=== PATIENT | female | born 1955 | race Caucasian/White ===

== ENCOUNTER 2020-10-28 13:47 | Outpatient (REF) | payer MEDICARE, OTHER, SELFPAY ==
[2020-10-28 14:44] LABS: Baso%MD 1.2 %; Eos%MD 1.9 %; Hematocrit 36.7 % (37-47); Hemoglobin 12.5 g/dl (12.0-16.0); IG%MD 0.2 %; Lymph%MD 23.7 %; Mean Corpuscular HGB Conc 34.1 g/dl (31.0-35.0); Mean Corpuscular Hemoglobin 33.9 pg (27.0-33.0); Mean Corpuscular Volume 99.5 fL (80-98); Mean Platelet Volume 9.8 fL (9.4-12.3); Mono%MD 11.6 %; Neut%MD 61.4 %; Platelet Count 253 X10*3/uL (160-400); Red Blood Count 3.69 X10*6/uL (4.20-5.50); White Blood Count 4.2 X10*3/uL (4.8-10.8)
[2020-10-28 15:03] LABS: Alanine Aminotransferase 16 U/L (0-31); Albumin Level 4.8 g/dL (3.5-5.0); Alkaline Phosphatase 33 U/L (39-117); Anion Gap 15 (12-20); Aspartate Amino Transferase 17 U/L (5-31); Bilirubin Total 0.6 mg/dL (0.0-1.0); Blood Urea Nitrogen 14 mg/dL (9-16); Calcium 9.6 mg/dL (8.4-10.2); Carbon Dioxide 26 mmol/L (22-29); Chloride 99 mmol/L (96-108); Estimated Glomerular Filt Rate > 60; Glucose Random 99 mg/dL (60-115); Potassium 5.3 mmol/l (3.3-5.1); Sodium 135 mmol/L (135-145); Total Protein 7.3 g/dL (6.5-8.0)
[2020-10-28 15:26] LABS: Band Neutrophils Percent 0 % (3-5); Basophils Abs Manual 0.1 X10*3/uL (0.0-0.3); Basophils Percent Manual 2 % (0-1); Lymphocytes Absolute Manual 0.9 X10*3/uL (0.6-4.8); Lymphocytes Percent Manual 22 % (20-40); Monocytes Absolute Manual 0.5 X10*3/uL (0.0-1.2); Monocytes Percent Manual 13 % (2-11); Neutrophils Absolute Manual 2.6 X10*3/uL (2.2-7.9); Neutrophils Percent Manual 63 % (45-73)
[2020-10-28 15:27] LABS: Microcytosis 1+; Platelet Estimate NORMAL (NORMAL); RBC Morphology NOTED
[2020-10-28 15:28] LABS: Platelet Morphology Comment NORM
[2020-10-28 15:29] LABS: Burr Cells 1+; Schistocytes 1+
== END 2020-10-28 13:48 | disposition home or self-care (01) ==
LOC: HO.LAB 13:47
PROVIDERS: PCP Internal Medicine; Visit Provider Internal Medicine Medical Oncology
DX: D72.819 Decreased white blood cell count, unspecified (principal)
CPT/HCPCS: 36415; 80053; 85007; 85027

== ENCOUNTER → 2021-01-27 13:14 | Outpatient (BNVA) | payer MEDICARE, OTHER, SELFPAY | PROVIDERS: Visit Provider Urology | DX: N30.10 Interstitial cystitis (chronic) without hematuria (principal) | CPT/HCPCS: 99212 ==

== ENCOUNTER 2021-04-21 13:30 | Outpatient (REF) | payer MEDICARE, OTHER, SELFPAY ==
[2021-04-21 15:29] LABS: TSH reflex Free T4 0.78 uIU/mL (0.32-4.0)
[2021-04-22 16:52] LABS: Immunoglobulin A 120 mg/dL (70-320)
[2021-04-22 22:57] LABS: Transglutaminase Ab IgG 4 U/mL; Transglutaminase IgA 1 U/mL
[2021-04-23 00:12] LABS: Gliadin Deamidated IgA Ab 3 Units; Gliadin Deamidated IgG Ab 2 Units
[2021-04-24 12:22] LABS: Endomysial IgA Antibody Negative (Negative)
== END 2021-04-21 13:31 | disposition home or self-care (01) ==
LOC: HO.LAB 13:30
PROVIDERS: PCP Internal Medicine; Visit Provider Internal Medicine
DX: K58.0 Irritable bowel syndrome with diarrhea (principal)
CPT/HCPCS: 36415; 82784; 83516; 84443; 86255; 86256

== ENCOUNTER 2021-06-10 10:32 | Outpatient (REF) | payer MEDICARE, OTHER, SELFPAY ==
[2021-06-10 13:27] LABS: MANUAL DIFF FLAG NO
[2021-06-10 13:34] LABS: Basophils Percent Auto 1.2 % (0-2); Eosinophils Absolute Auto 0.1 X10*3/uL (0.0-0.4); Eosinophils Percent Auto 2.6 % (0-4); Hematocrit 37.5 % (37-47); Hemoglobin 12.7 g/dl (12.0-16.0); Imm Gran Abs Auto 0.03 X10*3/uL (0.00-0.03); Imm Gran Pct Auto 0.9 % (0.0-0.4); Lymphocytes Percent Auto 28.4 % (20-40); Mean Corpuscular HGB Conc 33.9 g/dl (31.0-35.0); Mean Corpuscular Hemoglobin 33.5 pg (27.0-33.0); Mean Corpuscular Volume 98.9 fL (80-98); Mean Platelet Volume 9.8 fL (9.4-12.3); Monocytes Absolute Auto 0.5 X10*3/uL (0.1-1.2); Neutrophils Absolute Auto 1.8 X10*3/uL (2.0-8.3); Neutrophils Percent Auto 52.9 % (45-73); Platelet Count 296 X10*3/uL (160-400); Red Blood Count 3.79 X10*6/uL (4.20-5.50); Red Cell Distribution Width 12.7 % (11.0-16.0); White Blood Count 3.4 X10*3/uL (4.8-10.8)
[2021-06-10 15:09] LABS: Alanine Aminotransferase 18 U/L (0-31); Albumin Level 4.7 g/dL (3.5-5.0); Alkaline Phosphatase 34 U/L (39-117); Anion Gap 15 (12-20); Aspartate Amino Transferase 17 U/L (5-31); Bilirubin Total 0.6 mg/dL (0.0-1.0); Blood Urea Nitrogen 13 mg/dL (9-16); Carbon Dioxide 27 mmol/L (22-29); Chloride 97 mmol/L (96-108); Cholesterol 250 mg/dL; Estimated Glomerular Filt Rate > 60; Glucose Fasting 100 mg/dL (60-99); HDL Cholesterol 97 mg/dL; LDL Cholesterol Calculated 140 mg/dl; Potassium 4.7 mmol/L (3.3-5.1); Sodium 134 mmol/L (135-145); Total Protein 7.3 g/dL (6.5-8.0); Triglycerides 65 mg/dL
== END 2021-06-10 10:33 | disposition home or self-care (01) ==
LOC: HO.10HDL 10:32
PROVIDERS: Visit Provider Physician Assistant
DX: Z00.00 Encounter for general adult medical examination without abnormal findings (principal)
CPT/HCPCS: 36415; 80053; 80061; 85025

== ENCOUNTER → 2021-08-18 10:52 | Outpatient (BNVA) | payer MEDICARE, OTHER, SELFPAY | DX: N30.10 Interstitial cystitis (chronic) without hematuria (principal) | CPT/HCPCS: 99212 ==

== ENCOUNTER 2021-10-28 10:59 | Outpatient (REF) | payer MEDICARE, OTHER, SELFPAY ==
[2021-10-28 14:00] LABS: MANUAL DIFF FLAG NO
[2021-10-28 14:04] LABS: Basophils Percent Auto 0.9 % (0-2); Eosinophils Absolute Auto 0.1 X10*3/uL (0.0-0.4); Eosinophils Percent Auto 2.6 % (0-4); Hematocrit 36.1 % (37.0-47.0); Hemoglobin 12.4 g/dl (12.0-16.0); Imm Gran Abs Auto 0.02 X10*3/uL (0.00-0.03); Imm Gran Pct Auto 0.6 % (0.0-0.4); Lymphocytes Absolute Auto 0.9 X10*3/uL (1.2-4.9); Lymphocytes Percent Auto 26.1 % (20-40); Mean Corpuscular HGB Conc 34.3 g/dl (31.0-35.0); Mean Corpuscular Hemoglobin 33.7 pg (27.0-33.0); Mean Corpuscular Volume 98.1 fL (80.0-98.0); Monocytes Absolute Auto 0.5 X10*3/uL (0.1-1.2); Monocytes Percent Auto 14.4 % (2-11); Neutrophils Absolute Auto 1.9 x10*3/uL (2.0-8.3); Neutrophils Percent Auto 55.4 % (45-73); Platelet Count 298 X10*3/uL (160-400); Red Blood Count 3.68 X10*6/uL (4.20-5.50); Red Cell Distribution Width 12.9 % (11.0-16.0); White Blood Count 3.4 X10*3/uL (4.8-10.8)
[2021-10-28 14:25] LABS: Alanine Aminotransferase 18 U/L (0-31); Albumin Level 4.5 g/dL (3.5-5.0); Alkaline Phosphatase 33 U/L (39-117); Anion Gap 13 (12-20); Aspartate Amino Transferase 18 U/L (5-31); Bilirubin Total 0.5 mg/dL (0.0-1.0); Blood Urea Nitrogen 18 mg/dL (9-16); Calcium 9.9 mg/dL (8.4-10.2); Carbon Dioxide 27 mmol/L (22-29); Chloride 100 mmol/L (96-108); Estimated Glomerular Filt Rate > 60; Glucose Random 99 mg/dL (60-115); Potassium 4.6 mmol/L (3.3-5.1); Sodium 135 mmol/L (135-145); Total Protein 7.1 g/dL (6.5-8.0)
== END 2021-10-28 11:00 | disposition home or self-care (01) ==
LOC: HO.10HDL 10:59
PROVIDERS: Visit Provider Internal Medicine Medical Oncology
DX: D72.819 Decreased white blood cell count, unspecified (principal)
CPT/HCPCS: 36415; 80053; 85025

== ENCOUNTER → 2022-04-28 11:25 | Outpatient (BNVA) | payer MEDICARE, OTHER, SELFPAY | DX: N30.10 Interstitial cystitis (chronic) without hematuria (principal); Z79.899 Other long term (current) drug therapy | CPT/HCPCS: Q3014 ==

== ENCOUNTER 2022-10-28 10:19 | Outpatient (REF) | payer MEDICARE, OTHER, SELFPAY ==
[2022-10-28 13:45] LABS: MANUAL DIFF FLAG NO
[2022-10-28 13:53] LABS: Basophils Percent Auto 1.1 % (0-2); Eosinophils Absolute Auto 0.1 X10*3/uL (0.0-0.4); Eosinophils Percent Auto 1.7 % (0-4); Hematocrit 36.9 % (37.0-47.0); Hemoglobin 12.4 g/dl (12.0-16.0); Imm Gran Abs Auto 0.01 X10*3/uL (0.00-0.03); Imm Gran Pct Auto 0.3 % (0.0-0.4); Mean Corpuscular HGB Conc 33.6 g/dl (31.0-35.0); Mean Corpuscular Hemoglobin 33.2 pg (27.0-33.0); Mean Corpuscular Volume 98.7 fL (80.0-98.0); Mean Platelet Volume 9.9 fL (9.4-12.3); Monocytes Absolute Auto 0.5 X10*3/uL (0.1-1.2); Monocytes Percent Auto 14.2 % (2-11); Neutrophils Percent Auto 55.7 % (45-73); Platelet Count 268 X10*3/uL (160-400); Red Blood Count 3.74 X10*6/uL (4.20-5.50); Red Cell Distribution Width 12.9 % (11.0-16.0); White Blood Count 3.6 X10*3/uL (4.8-10.8)
[2022-10-28 14:13] LABS: Alanine Aminotransferase 16 U/L (0-31); Albumin Level 4.9 g/dL (3.5-5.0); Alkaline Phosphatase 33 U/L (39-117); Anion Gap 13 (12-20); Aspartate Amino Transferase 19 U/L (5-31); Bilirubin Total 0.4 mg/dL (0.0-1.0); Blood Urea Nitrogen 17 mg/dL (9-16); Calcium 10.1 mg/dL (8.4-10.2); Carbon Dioxide 26 mmol/L (22-29); Chloride 99 mmol/L (96-108); Estimated Glomerular Filt Rate > 60; Glucose Random 68 mg/dL (60-115); Potassium 5.1 mmol/L (3.3-5.1); Sodium 133 mmol/L (135-145); Total Protein 7.2 g/dL (6.5-8.0)
== END 2022-10-28 10:20 | disposition home or self-care (01) ==
LOC: HO.10HDL 10:19
PROVIDERS: Visit Provider Internal Medicine Medical Oncology
DX: D72.819 Decreased white blood cell count, unspecified (principal); N30.10 Interstitial cystitis (chronic) without hematuria
CPT/HCPCS: 36415; 80053; 85025; 99212

== ENCOUNTER → 2022-12-02 11:27 | Outpatient (BNVA) | payer MEDICARE, OTHER, SELFPAY | PROVIDERS: PCP Physician Assistant; Visit Provider Urology | DX: N30.10 Interstitial cystitis (chronic) without hematuria (principal); Z79.899 Other long term (current) drug therapy | CPT/HCPCS: Q3014 ==

== ENCOUNTER 2023-08-09 10:17 | Day surgery (SDC) | payer MEDICARE, OTHER, SELFPAY ==
--- NOTE | 2023-08-07 15:06 | HO.ANESPROP2 ---
Documented by User: Shelly Stallings NP 08/07/23 15:09 HPI - Anesthesia Eval Consult details Narrative: 68yo F for Colonoscopy PMFSH Active Problems Active Problems: All Active Problems (Updated 12/02/22 @ 11:47 by Mame Leslie MD) Recurrent UTI (Acute) Interstitial cystitis (Acute) Past Medical History Medical History Diverticulitis Anxiety GERD (gastroesophageal reflux disease) Interstitial cystitis Family History Family History Father No problems noted. Mother No problems noted. Maternal Uncle Esophageal cancer Surgical History Surgical History Hx of esophagogastroduodenoscopy Hx of colonoscopy Cyst of fallopian tube Hx of cystoscopy Social History Social History Patient Tobacco Use Status: Never used Tobacco Meds Allergies Allergy/AdvReac Type Severity Reaction Status Date / Time sulfamethoxazole Allergy Intermediate HIVES Verified 08/09/23 11:02 [From BACTRIM] trimethoprim [From BACTRIM] Allergy Intermediate HIVES Verified 12/02/22 11:30 amoxicillin [AMOXICILLIN] Allergy Unknown HIVES, Verified 12/02/22 11:30 hives, swelling Sulfa (Sulfonamide Allergy Unknown hives, Verified 12/02/22 11:30 Antibiotics) swelling tetracycline [TETRACYCLINE] Allergy Unknown DIARRHEA, Verified 12/02/22 11:30 severe GI problems, nausea, diarrhea clarithromycin [From Biaxin] Allergy Unknown Verified 08/09/23 11:03 nitrofurantoin Allergy Stomach Verified 12/02/22 11:30 [From Macrodantin] Upset erythromycin base AdvReac Intermediate NAUSEA/DIAR Verified 12/02/22 11:30 [ERYTHROMYCIN BASE] USMAN Erythromycin Allergy Unknown severe GI Uncoded 12/02/22 11:30 problems, nausea, diarrhea Home Medications Medication Instructions Recorded Confirmed Last Taken Type lorazepam 1 mg tablet 1 mg PO BEDTIME PRN 07/25/20 12/02/22 Unknown History pantoprazole 40 mg tablet,delayed 40 mg PO DAILY 07/25/20 12/02/22 Unknown History release (Protonix) progesterone micronized 100 mg 100 mg PO QAM 07/25/20 12/02/22 Unknown History capsule (Prometrium) citalopram 10 mg tablet 10 mg PO DAILY 04/28/22 12/02/22 08/09/23 08:00 History estradiol 0.025 mg/24 hr 0 patch transdermal 04/28/22 12/02/22 Unknown History semiweekly transdermal patch hyoscyamine sulfate 0.125 mg tablet 0.125 - 0.25 mg PO Q6H PRN cramps 04/28/22 12/02/22 Unknown History ibuprofen 600 mg tablet 600 mg PO Q6H PRN 04/28/22 12/02/22 Unknown History ciprofloxacin HCl 250 mg tablet 250 mg PO BID 08/09/23 08/09/23 08/09/23 08:00 History Exam Exam Date and Time: August 07, 2023 1506 Assessment and Plan Assessment Anesthesia Assessment: Chart Reviewed Documented by User: Birdie Mendosa MD 08/09/23 12:36 PMFSH Active Problems Active Problems: All Active Problems (Updated 08/09/23 @ 11:17 by Birdie Mendosa MD) Recurrent UTI (Acute) Interstitial cystitis (Acute) Past Medical History Medical History Diverticulitis Anxiety GERD (gastroesophageal reflux disease) Interstitial cystitis Family History Family History Father No problems noted. Mother No problems noted. Maternal Uncle Esophageal cancer Family history of problems with anesthesia: No Surgical History Surgical History Hx of esophagogastroduodenoscopy Hx of colonoscopy Cyst of fallopian tube Hx of cystoscopy History of Problems with Anesthesia: Yes (PONV even after colonoscopies. Suspect conscious sedation. GA for urology procedure. No N/V with zofran/reglan) Social History Social History Patient Tobacco Use Status: Never used Tobacco Meds Allergies Allergy/AdvReac Type Severity Reaction Status Date / Time sulfamethoxazole Allergy Intermediate HIVES Verified 08/09/23 11:02 [From BACTRIM] trimethoprim [From BACTRIM] Allergy Intermediate HIVES Verified 12/02/22 11:30 amoxicillin [AMOXICILLIN] Allergy Unknown HIVES, Verified 12/02/22 11:30 hives, swelling Sulfa (Sulfonamide Allergy Unknown hives, Verified 12/02/22 11:30 Antibiotics) swelling tetracycline [TETRACYCLINE] Allergy Unknown DIARRHEA, Verified 12/02/22 11:30 severe GI problems, nausea, diarrhea clarithromycin [From Biaxin] Allergy Unknown Verified 08/09/23 11:03 nitrofurantoin Allergy Stomach Verified 12/02/22 11:30 [From Macrodantin] Upset erythromycin base AdvReac Intermediate NAUSEA/DIAR Verified 12/02/22 11:30 [ERYTHROMYCIN BASE] USMAN Erythromycin Allergy Unknown severe GI Uncoded 12/02/22 11:30 problems, nausea, diarrhea Home Medications Medication Instructions Recorded Confirmed Last Taken Type lorazepam 1 mg tablet 1 mg PO BEDTIME PRN 07/25/20 12/02/22 Unknown History pantoprazole 40 mg tablet,delayed 40 mg PO DAILY 07/25/20 12/02/22 Unknown History release (Protonix) progesterone micronized 100 mg 100 mg PO QAM 07/25/20 12/02/22 Unknown History capsule (Prometrium) citalopram 10 mg tablet 10 mg PO DAILY 04/28/22 12/02/22 08/09/23 08:00 History estradiol 0.025 mg/24 hr 0 patch transdermal 04/28/22 12/02/22 Unknown History semiweekly transdermal patch hyoscyamine sulfate 0.125 mg tablet 0.125 - 0.25 mg PO Q6H PRN cramps 04/28/22 12/02/22 Unknown History ibuprofen 600 mg tablet 600 mg PO Q6H PRN 04/28/22 12/02/22 Unknown History ciprofloxacin HCl 250 mg tablet 250 mg PO BID 08/09/23 08/09/23 08/09/23 08:00 History Exam Height,Weight and Vital Signs: Height 138 ft 3.5 in Weight 62.596 kg Vital Signs Temp Pulse Resp BP Pulse Ox O2 Del Method 08/09/23 10:59 97.5 F 75 16 140/85 H 99 Room Air Airway Mallampati Class: II TM Dist: >3cm Neck ROM: Full Loose/Missing/Broken Teeth: No (Denies broken, loose, missing teeth) Heart: RRR Lungs: CTAB Assessment and Plan Assessment Anesthesia Assessment: Anesthesia Plan Discussed Final Anesthetic Review Family History of Problems with Anesthesia: No History of Problems with Anesthesia: Yes (PONV even after colonoscopies. Suspect conscious sedation. GA for urology procedure. No N/V with zofran/reglan) NPO: Yes ASA Class: II Final Preanesthetic Review: No Changes in Pt Med Stat, Meds/Allgs Chart Reviewed, Consent Obtained/Reviewed and Anes Risks/Benef Reviewed Patient Risk: Low Procedure Risk: Low Assessment/Block/Sedation in SS: Assess/Block/Sedation-SS Anesthetic Plan Anesthetic Plan: MAC: (Anti-emetics) Disposition: Standard PACU
[2023-08-09 10:32] VITALS: BMI 24.1
[2023-08-09] MEDS: Lactated Ringers 1,000 ML 100 ML IVCONT (10:58)
[2023-08-09 10:59] VITALS: BP 140/85; PULSE 75; RESP 16; TEMP 36.4; O2SAT 99
[2023-08-09 12:16] VITALS: BP 102/52; PULSE 75; RESP 16; TEMP 36.6; O2SAT 99
--- NOTE | 2023-08-09 12:18 | P.BOP_ITS ---
Brief Operative Note Date of Service: 08/09/23 Pre-op diagnosis: Screening Post-op diagnosis: other (Polyps) Procedure: Colonoscopy to the cecum and TI with hot snare polypectomy and cold snare polypectomy Surgeon: Carrillo Hernández MD Anesthesia: MAC Was an Radial Drill Operator For Plastic used for this Procedure?: No Estimated blood loss (mL): 2.0 Pathology: other (A. Ascending colon polyps) Condition: stable Disposition: PACU
[2023-08-09 12:30] VITALS: BP 100/67; PULSE 69; RESP 16; TEMP 36.6; O2SAT 99
--- NOTE | 2023-08-09 12:47 | OP_ITS ---
DATE OF SERVICE: 08/09/2023 SURGEON: Carrillo Hernández MD INDICATIONS: The patient presents for evaluation of colorectal cancer screening, history of diverticulitis, and history of irritable bowel syndrome. Full consent has been obtained from her for this, including risks of bleeding and perforation. PREOPERATIVE DIAGNOSIS: Colorectal cancer screening, history of diverticulitis, history of irritable bowel syndrome. POSTOPERATIVE DIAGNOSIS: Colorectal cancer screening, history of diverticulitis, history of irritable bowel syndrome, colon polyps, diverticulosis, and internal hemorrhoids. PROCEDURE PERFORMED: Colonoscopy to the cecum and terminal ileum with hot snare polypectomy and cold snare polypectomy. ESTIMATED BLOOD LOSS: COMPLICATIONS: ANESTHESIA: Medication used; monitored anesthesia care. ASSISTANTS: SPECIMENS: DESCRIPTION OF PROCEDURE: The patient was placed in the left lateral decubitus position. The digital rectal exam revealed no abnormalities. The [employer] video pediatric colonoscope was entered into the rectum and advanced easily to the cecum. Once in the cecum, I did identify normal-appearing cecal pouch with appendiceal orifice and a normal-appearing ileocecal valve. The terminal ileum was cannulated and appeared normal. The scope was withdrawn back in the colon. The entire cecum and ileocecal valve appeared normal. The scope was slowly withdrawn, assessing all mucosal surfaces carefully. Preparation was excellent. In the proximal ascending colon, was a flat, but raised approximately 12 mm polyp, which appeared to be a probable serrated polyp. This was removed by hot snare polypectomy, recovered by suction. The polypectomy site appeared clean, without any sign of residual polyp nor bleeding. Somewhat distal to this, was an approximately 5 mm polyp, which was removed by cold snare polypectomy and recovered by suction, and then placed in the same container as the previous polyp. The polypectomy site appeared clean, without any sign of residual polyp nor significant bleeding. I did not visualize any other polyps, colitis, nor angiodysplasia. There was a moderate amount of sigmoid diverticulosis. In the rectum, scope was retroflexed, visualizing internal hemorrhoids, but no other pathology. The rectal mucosa appeared normal. The scope was straightened and withdrawn from the patient. She tolerated the procedure well and was returned to the recovery area in stable condition. IMPRESSION: 1. Colon polyps. 2. Diverticulosis. 3. Internal hemorrhoids. PLAN: The results of the pathology will be checked. If either of these are adenomas or serrated polyps, I would recommend a repeat colonoscopy in 5 years. She was advised to continue her high-fiber diet in regard to the irritable bowel syndrome and history of diverticulitis. She was advised not to use any aspirin or NSAIDs for 1 week. MD ROE Mari/KINGA / [id number]
== END 2023-08-09 13:21 | disposition home or self-care (01) ==
PROVIDERS: PCP Physician Assistant; Visit Provider Internal Medicine
PROC: 0DJD8ZZ Inspection of Lower Intestinal Tract, Via Natural or Artificial Opening Endoscopic (ICD-10-PCS; CPT 45378; principal; 2023-08-09 11:40)
DX: Z12.11 Encounter for screening for malignant neoplasm of colon (principal); Z87.19 Personal history of other diseases of the digestive system; D12.2 Benign neoplasm of ascending colon; K57.30 Diverticulosis of large intestine without perforation or abscess without bleeding; K64.8 Other hemorrhoids; K58.2 Mixed irritable bowel syndrome; N30.10 Interstitial cystitis (chronic) without hematuria; F41.9 Anxiety disorder, unspecified; Z79.899 Other long term (current) drug therapy; Z88.1 Allergy status to other antibiotic agents; Z87.891 Personal history of nicotine dependence; Z86.16 Personal history of COVID-19
CPT/HCPCS: 45385; 88305; J2371

== ENCOUNTER 2023-08-23 08:21 | Outpatient (REF) | payer MEDICARE, OTHER, SELFPAY ==
[2023-08-23 13:07] LABS: MANUAL DIFF FLAG NO
[2023-08-23 13:21] LABS: Eosinophils Absolute Auto 0.1 X10*3/uL (0.0-0.4); Eosinophils Percent Auto 3.3 % (0-4); Hemoglobin 12.7 g/dl (12.0-16.0); Imm Gran Abs Auto 0.02 X10*3/uL (0.00-0.03); Imm Gran Pct Auto 0.7 % (0.0-0.4); Lymphocytes Percent Auto 32.1 % (20-40); Mean Corpuscular HGB Conc 34.3 g/dl (31.0-35.0); Mean Corpuscular Hemoglobin 33.7 pg (27.0-33.0); Mean Corpuscular Volume 98.1 fL (80.0-98.0); Mean Platelet Volume 9.7 fL (9.4-12.3); Monocytes Absolute Auto 0.4 X10*3/uL (0.1-1.2); Monocytes Percent Auto 12.6 % (2-11); Neutrophils Absolute Auto 1.5 x10*3/uL (2.0-8.3); Neutrophils Percent Auto 50.3 % (45-73); Platelet Count 307 X10*3/uL (160-400); Red Blood Count 3.77 X10*6/uL (4.20-5.50); Red Cell Distribution Width 13.2 % (11.0-16.0)
[2023-08-23 13:40] LABS: Alanine Aminotransferase 16 U/L (0-31); Albumin Level 4.5 g/dL (3.5-5.0); Alkaline Phosphatase 34 U/L (39-117); Anion Gap 13 (12-20); Aspartate Amino Transferase 18 U/L (5-31); Bilirubin Total 0.4 mg/dL (0.0-1.0); Blood Urea Nitrogen 15 mg/dL (9-16); Calcium 9.8 mg/dL (8.4-10.2); Carbon Dioxide 26 mmol/L (22-29); Chloride 101 mmol/L (96-108); Cholesterol 217 mg/dL (<200); Estimated Glomerular Filt Rate > 60; Glucose Random 88 mg/dL (60-115); HDL Cholesterol 87 mg/dL (>40); LDL Cholesterol Calculated 117 mg/dL (<100); Potassium 4.2 mmol/L (3.3-5.1); Sodium 136 mmol/L (135-145); Total Protein 7.3 g/dL (6.5-8.0); Triglycerides 66 mg/dL (<150)
== END 2023-08-23 08:22 | disposition home or self-care (01) ==
LOC: HO.MANLDS 08:21
PROVIDERS: Visit Provider Physician Assistant
DX: Z00.00 Encounter for general adult medical examination without abnormal findings (principal)
CPT/HCPCS: 36415; 80053; 80061; 85025

== ENCOUNTER 2024-08-28 07:35 | Outpatient (REF) | payer MEDICARE, OTHER, SELFPAY ==
[2024-08-28 14:30] LABS: MANUAL DIFF FLAG NO
[2024-08-28 14:36] LABS: Basophils Percent Auto 1.2 % (0-2); Eosinophils Absolute Auto 0.2 X10*3/uL (0.0-0.4); Eosinophils Percent Auto 4.8 % (0-4); Hematocrit 38.2 % (37.0-47.0); Hemoglobin 13.3 g/dl (12.0-16.0); Imm Gran Abs Auto 0.01 X10*3/uL (0.00-0.03); Imm Gran Pct Auto 0.3 % (0.0-0.4); Lymphocytes Percent Auto 31.1 % (20-40); Mean Corpuscular HGB Conc 34.8 g/dl (31.0-35.0); Mean Corpuscular Hemoglobin 33.8 pg (27.0-33.0); Mean Corpuscular Volume 97.2 fL (80.0-98.0); Mean Platelet Volume 10.2 fL (9.4-12.3); Monocytes Absolute Auto 0.5 X10*3/uL (0.1-1.2); Monocytes Percent Auto 15.4 % (2-11); Neutrophils Absolute Auto 1.6 x10*3/uL (2.0-8.3); Neutrophils Percent Auto 47.2 % (45-73); Platelet Count 255 X10*3/uL (160-400); Red Blood Count 3.93 X10*6/uL (4.20-5.50); Red Cell Distribution Width 12.7 % (11.0-16.0); White Blood Count 3.3 X10*3/uL (4.8-10.8)
[2024-08-28 14:40] LABS: Estimated Average Glucose 108 mg/dL; Hemoglobin A1C 121.8641 umol/L; Hemoglobin A1c % 5.4 % (<6.0)
[2024-08-28 15:14] LABS: Alanine Aminotransferase 17 U/L (0-31); Albumin Level 4.7 g/dL (3.5-5.0); Alkaline Phosphatase 35 U/L (39-117); Anion Gap 14 (12-20); Aspartate Amino Transferase 21 U/L (5-31); Bilirubin Total 0.4 mg/dL (0.0-1.0); Blood Urea Nitrogen 16 mg/dL (9-16); Calcium 10.2 mg/dL (8.4-10.2); Carbon Dioxide 27 mmol/L (22-29); Chloride 99 mmol/L (96-108); Cholesterol 235 mg/dL (<200); Estimated Glomerular Filt Rate > 60; Glucose Random 89 mg/dL (60-115); HDL Cholesterol 89 mg/dL (>40); LDL Cholesterol Calculated 131 mg/dL (<100); Potassium 4.4 mmol/L (3.3-5.1); Sodium 136 mmol/L (135-145); Total Protein 7.5 g/dL (6.5-8.0); Triglycerides 76 mg/dL (<150)
[2024-08-28 15:32] LABS: Thyroid Stimulating Hormone 2.03 uIU/mL (0.32-4.0)
[2024-08-28 15:49] LABS: Folate 14.5 ng/mL (> or = 4.0); Vitamin B12 > 2000 pg/mL (200-900)
[2024-09-02 17:59] LABS: VITAMIN D (1,25 OH) D3 39 pg/mL; Vit D (1,25-Dihydroxy) Total 39 pg/mL (18-72); Vitamin D (1,25 OH) D2 <8 pg/mL
== END 2024-08-28 07:36 | disposition home or self-care (01) ==
LOC: HO.MANLDS 07:35
PROVIDERS: Visit Provider Physician Assistant
DX: Z00.00 Encounter for general adult medical examination without abnormal findings (principal); Z13.1 Encounter for screening for diabetes mellitus
CPT/HCPCS: 36415; 80053; 80061; 82607; 82652; 82746; 83036; 84436; 84443; 85025

== ENCOUNTER 2025-04-02 15:32 | Outpatient (REF) | payer MEDICARE, OTHER, SELFPAY ==
--- OUTSIDE RECORDS SUMMARY | 2025-04-02 17:56 | XMS_ITS ---
Author Organization [facility] Address [address] [place] [id number] Care Team Providers Care Research Statistician Name Role Phone Dilip Day Primary Care Provider Carrillo Gusman [phone] REASON FOR VISIT constipation Encounters Encounter Location Date Provider Diagnosis [facility] [address] [place] [phone] 07/25/2024 Carrillo Hernández Plan Of Treatment No Information Progress Notes * NEO WHARTON ADOB: [birth year] (69 yo F)Acc No.[id number]:07/25/2024 Patient:?NEO WHARTON :1955???Age:69 Y???Sex:Female Address:[address] [place] [address] * true * Date:? Generated for Laura kenny/Dev/eTransmitting on:?04/02/2025 05:56 PM EDT
[2025-04-02 18:04] LABS: MANUAL DIFF FLAG NO
[2025-04-02 18:27] LABS: Estimated Average Glucose 108 mg/dL; Hemoglobin A1c % 5.4 % (<6.0); Total Hemoglobin (HGBA1C) 3464.4418 umol/L
[2025-04-02 18:32] LABS: Eosinophils Absolute Auto 0.1 X10*3/uL (0.0-0.4); Eosinophils Percent Auto 1.7 % (0-4); Hematocrit 37.7 % (37.0-47.0); Imm Gran Abs Auto 0.01 X10*3/uL (0.00-0.03); Imm Gran Pct Auto 0.2 % (0.0-0.4); Lymphocytes Percent Auto 23.7 % (20-40); Mean Corpuscular HGB Conc 34.5 g/dl (31.0-35.0); Mean Corpuscular Hemoglobin 33.9 pg (27.0-33.0); Mean Corpuscular Volume 98.4 fL (80.0-98.0); Mean Platelet Volume 9.9 fL (9.4-12.3); Monocytes Absolute Auto 0.4 X10*3/uL (0.1-1.2); Monocytes Percent Auto 9.2 % (2-11); Neutrophils Absolute Auto 2.7 x10*3/uL (2.0-8.3); Neutrophils Percent Auto 64.2 % (45-73); Platelet Count 269 X10*3/uL (160-400); Red Blood Count 3.83 X10*6/uL (4.20-5.50); Red Cell Distribution Width 12.8 % (11.0-16.0); White Blood Count 4.1 X10*3/uL (4.8-10.8)
[2025-04-02 18:34] LABS: Appearance Urine Clear; Color Urine Yellow; Glucose Urine UA Negative (Negative); Leukocyte Esterase Urine Negative (Negative); Nitrite Urine Negative (Negative); Urine Blood Negative (Negative); Urine Ketones Negative (Negative); Urine Protein Negative (Neg-Trace)
[2025-04-02 18:39] LABS: Alanine Aminotransferase 17 U/L (0-31); Albumin Level 4.8 g/dL (3.5-5.0); Alkaline Phosphatase 33 U/L (39-117); Anion Gap 11 (12-20); Aspartate Amino Transferase 23 U/L (5-31); Bilirubin Total 0.5 mg/dL (0.0-1.0); Blood Urea Nitrogen 15 mg/dL (9-16); C Reactive Protein < 0.10 mg/dL (< or = 0.50); Calcium 9.7 mg/dL (8.4-10.2); Carbon Dioxide 27 mmol/L (22-29); Chloride 101 mmol/L (96-108); Estimated Glomerular Filt Rate > 60; Glucose Random 126 mg/dL (60-115); Iron 97 mcg/dL (30-160); Percent Iron Saturation 30 % (15-50); Potassium 4.2 mmol/L (3.3-5.1); Sodium 135 mmol/L (135-145); Total Iron Binding Capacity 327 mcg/dL (228-428); Total Protein 7.3 g/dL (6.5-8.0); Unsaturated Iron Binding 230 ug/dL
[2025-04-02 18:57] LABS: Vitamin B12 732 pg/mL (200-900)
[2025-04-02 19:00] LABS: Ferritin 55 ng/mL (10-250); Free T4 (Free Thyroxine) 1.05 ng/dL (0.71-1.85); Thyroid Stimulating Hormone 1.06 uIU/mL (0.32-4.0)
[2025-04-02 19:20] LABS: Erythrocyte Sedimentation Rate 7 MM/HR (0-20)
[2025-04-03 05:13] LABS: Lyme Abs Screen <0.90 index
[2025-04-08 15:57] LABS: A phagocytophilum IgG <1:64 (<1:64); A phagocytophilum IgM <1:20 (<1:20)
== END 2025-04-02 15:33 | disposition home or self-care (01) ==
LOC: HO.MANLDS 15:32
PROVIDERS: Visit Provider Physician Assistant
DX: R68.2 Dry mouth, unspecified (principal); M79.10 Myalgia, unspecified site; L29.9 Pruritus, unspecified
CPT/HCPCS: 36415; 80053; 81003; 82607; 82728; 83036; 83540; 83735; 84439; 84443; 85025; 85652; 86140; 86617; 86618; 86666